=== PATIENT | male | born 1965 | race American Indian/Alaskan Native ===

== ENCOUNTER 2017-02-05 02:47 | Emergency (ER) | payer MEDICAID ==
[~2017-02-05] VITALS: Ht 165.1 cm; Wt 60.0 kg
[~2017-02-05 02:47] MED LIST: NAPR250T PO; OXYC-302 PO
[2017-02-05 05:50] VITALS: BP 133/84
== END 2017-02-05 05:52 | disposition home or self-care (01) ==
LOC: ED 03:01
DX: F10.220 Alcohol dependence with intoxication, uncomplicated (principal); E86.0 Dehydration
CPT/HCPCS: 99283

== ENCOUNTER 2017-02-05 18:49 | Emergency (ER) | payer MEDICAID | END 2017-02-05 19:26 | disposition left against medical advice (07) | LOC: ED 19:20 | DX: F10.220 Alcohol dependence with intoxication, uncomplicated (principal) | CPT/HCPCS: 99283 ==

== ENCOUNTER 2017-02-15 12:50 | Emergency (ER) | payer MEDICAID ==
[~2017-02-15] VITALS: Ht 167.6 cm; Wt 59.0 kg
[2017-02-15 14:21] VITALS: BP 123/84
== END 2017-02-15 14:52 | disposition home or self-care (01) ==
LOC: ED 14:46
DX: F10.229 Alcohol dependence with intoxication, unspecified (principal); F17.210 Nicotine dependence, cigarettes, uncomplicated; R51 Headache; K59.00 Constipation, unspecified
CPT/HCPCS: 99283

== ENCOUNTER 2017-06-04 19:06 | Emergency (ER) | payer MEDICAID ==
[~2017-06-04] VITALS: Ht 162.6 cm; Wt 55.7 kg
[2017-06-04] MEDS ORDERED: MAGNESIUM CITRATE 300ML ORAL SOL PO ONE (20:30)
[2017-06-04] MEDS ORDERED: MAGNESIUM CITRATE 300ML ORAL SOL ONE (21:26)
[2017-06-04 21:35] VITALS: BP 128/79
== END 2017-06-04 21:58 | disposition home or self-care (01) ==
LOC: ED 21:52
DX: K59.00 Constipation, unspecified (principal); F17.200 Nicotine dependence, unspecified, uncomplicated
CPT/HCPCS: 74020; 99284

== ENCOUNTER 2017-06-08 12:42 | Emergency (ER) | payer MEDICAID ==
[~2017-06-08] VITALS: Ht 165.1 cm; Wt 57.5 kg
[2017-06-08 13:57] LABS: HEMOGLOBIN 16.3 g/dL (13.7-18.0); WHITE BLOOD COUNT 6.6 x10^3/uL (3.4-10)
[2017-06-08] MEDS ORDERED: ONDANSETRON 2MG/ML, 2ML IVPush ONE (14:00)
[2017-06-08] MEDS ORDERED: SODIUM CHLORIDE 0.9% 1,000ML IVBOLUS ONE (14:00)
[2017-06-08] MEDS ORDERED: SODIUM CHLORIDE FLUSH 10ML SYR IVF ONE (14:00)
[2017-06-08 14:04] LABS: ASPARTATE AMINO TRANSFERASE 312 U/L (15-37); BLOOD UREA NITROGEN 8 mg/dL (7-18)
[2017-06-08] MEDS ORDERED: CYAN50TA PO (14:29)
[2017-06-08] MEDS ORDERED: MULT-297 PO (14:29)
[2017-06-08 18:00] VITALS: BP 121/82
== END 2017-06-08 18:03 | disposition home or self-care (01) ==
LOC: ED 17:57
DX: K64.8 Other hemorrhoids (principal); R11.2 Nausea with vomiting, unspecified
CPT/HCPCS: 36415; 74177; 80053; 83690; 85025; 96360; 96361; 99285; J7030

== ENCOUNTER 2017-08-03 17:31 | Emergency (ER) | payer MEDICAID ==
[~2017-08-03] VITALS: Ht 167.6 cm; Wt 62.0 kg
[~2017-08-03 17:31] MED LIST changes: +CYAN50TA PO; +MULT-297 PO
[2017-08-03 21:08] VITALS: BP 115/79
== END 2017-08-03 21:12 | disposition home or self-care (01) ==
LOC: ED 21:11
DX: F10.121 Alcohol abuse with intoxication delirium (principal); Z88.8 Allergy status to other drugs, medicaments and biological substances; G44.209 Tension-type headache, unspecified, not intractable
CPT/HCPCS: 70450; 99284

== ENCOUNTER 2017-09-26 19:21 | Emergency (ER) | payer MEDICAID ==
[~2017-09-26] VITALS: Ht 170.2 cm; Wt 62.0 kg
[2017-09-26 20:06] LABS: ALBUMIN 4.1 g/dL (3.4-5.0); ANION GAP 10 mmol/L (5-15); CALCIUM 8.2 mg/dL (8.5-10.1); CHLORIDE 108 mmol/L (98-107)
[2017-09-26 20:09] LABS: TROPONIN I < 0.015 ng/mL (0.000-0.045)
[2017-09-26 20:38] LABS: BASOPHILS # (AUTO) 0.03 x10^3/uL (0-0.1); BASOPHILS % (AUTO) 0 % (0-1); EOSINOPHILS # (AUTO) 0.03 x10^3/uL (0-0.4); EOSINOPHILS % (AUTO) 0 % (1-7); LYMPHOCYTES # (AUTO) 1.85 x10^3/uL (1-3.4); LYMPHOCYTES % (AUTO) 21 % (22-44); MD SCAN; MEAN CORPUSCULAR HEMOGLOBIN 33.3 pg (27.5-34.5); MEAN CORPUSCULAR HGB CONC 33.7 g/dL (33.2-36.2); MEAN CORPUSCULAR VOLUME 98.8 fL (81-97); MEAN PLATELET VOLUME 7.2 fL (7.4-10.4); MONOCYTES # (AUTO) 0.55 x10^3/uL (0.2-0.8); MONOCYTES % (AUTO) 6 % (2-9); NEUTROPHILS # (AUTO) 6.22 x10^3/uL (1.8-6.8); NEUTROPHILS % (AUTO) 72 % (42-75); PLATELET COUNT 366 x10^3/uL (130-400); RED BLOOD COUNT 4.87 x10^6/uL (4.38-5.82); RED CELL DISTRIBUTION WIDTH 14.6 % (9.4-14.8)
[2017-09-26 22:34] VITALS: BP 115/74
== END 2017-09-26 22:37 | disposition home or self-care (01) ==
LOC: ED 20:20
DX: R07.89 Other chest pain (principal); F10.120 Alcohol abuse with intoxication, uncomplicated; Z88.8 Allergy status to other drugs, medicaments and biological substances; Z88.6 Allergy status to analgesic agent; Z79.899 Other long term (current) drug therapy
CPT/HCPCS: 36415; 71045; 80048; 80307; 82040; 84484; 85025; 93005; 99285

== ENCOUNTER 2017-11-05 15:32 | Emergency (ER) | payer MEDICAID ==
[~2017-11-05] VITALS: Ht 162.6 cm; Wt 56.1 kg
[2017-11-05 17:15] LABS: BASOPHILS # (AUTO) 0.02 x10^3/uL (0-0.1); BASOPHILS % (AUTO) 1 % (0-1); EOSINOPHILS # (AUTO) 0.01 x10^3/uL (0-0.4); EOSINOPHILS % (AUTO) 0 % (1-7); LYMPHOCYTES # (AUTO) 1.68 x10^3/uL (1-3.4); LYMPHOCYTES % (AUTO) 37 % (22-44); MD NO; MEAN CORPUSCULAR HEMOGLOBIN 33.6 pg (27.5-34.5); MEAN CORPUSCULAR HGB CONC 34.3 g/dL (33.2-36.2); MEAN CORPUSCULAR VOLUME 98.2 fL (81-97); MEAN PLATELET VOLUME 7.5 fL (7.4-10.4); MONOCYTES # (AUTO) 0.52 x10^3/uL (0.2-0.8); MONOCYTES % (AUTO) 11 % (2-9); NEUTROPHILS # (AUTO) 2.33 x10^3/uL (1.8-6.8); NEUTROPHILS % (AUTO) 51 % (42-75); PLATELET COUNT 300 x10^3/uL (130-400); RED BLOOD COUNT 4.83 x10^6/uL (4.38-5.82); RED CELL DISTRIBUTION WIDTH 14.9 % (9.4-14.8)
[2017-11-05 17:27] LABS: ANION GAP 8 mmol/L (5-15); CALCIUM 8.6 mg/dL (8.5-10.1); CHLORIDE 110 mmol/L (98-107); CREATININE 0.66 mg/dL (0.7-1.3)
[2017-11-05 19:06] VITALS: BP 116/86
== END 2017-11-05 19:32 | disposition home or self-care (01) ==
LOC: ED 18:48
DX: G44.52 New daily persistent headache (NDPH) (principal)
CPT/HCPCS: 36415; 70450; 80048; 82040; 85025; 99285

== ENCOUNTER 2017-11-11 18:54 | Emergency (ER) | payer MEDICAID ==
[~2017-11-11] VITALS: Ht 165.1 cm; Wt 56.0 kg
[2017-11-11 18:58] VITALS: BP 134/92
[2017-11-11 19:57] LABS: PROTHROMBIN TIME 10.4 Seconds (9.6-11.5)
[2017-11-11 19:58] LABS: BASOPHILS # (AUTO) 0.03 x10^3/uL (0-0.1); BASOPHILS % (AUTO) 1 % (0-1); EOSINOPHILS # (AUTO) 0.05 x10^3/uL (0-0.4); EOSINOPHILS % (AUTO) 1 % (1-7); LYMPHOCYTES # (AUTO) 1.91 x10^3/uL (1-3.4); LYMPHOCYTES % (AUTO) 34 % (22-44); MD NO; MEAN CORPUSCULAR HEMOGLOBIN 33.4 pg (27.5-34.5); MEAN CORPUSCULAR HGB CONC 33.5 g/dL (33.2-36.2); MEAN CORPUSCULAR VOLUME 99.6 fL (81-97); MEAN PLATELET VOLUME 7.7 fL (7.4-10.4); MONOCYTES # (AUTO) 0.51 x10^3/uL (0.2-0.8); MONOCYTES % (AUTO) 9 % (2-9); NEUTROPHILS # (AUTO) 3.17 x10^3/uL (1.8-6.8); NEUTROPHILS % (AUTO) 56 % (42-75); PLATELET COUNT 270 x10^3/uL (130-400); RED BLOOD COUNT 4.54 x10^6/uL (4.38-5.82); RED CELL DISTRIBUTION WIDTH 14.5 % (9.4-14.8)
[2017-11-11 20:01] LABS: ALANINE AMINOTRANSFERASE 37 U/L (12-78); ANION GAP 10 mmol/L (5-15); CALCIUM 8.3 mg/dL (8.5-10.1); CHLORIDE 107 mmol/L (98-107); CREATININE 0.81 mg/dL (0.7-1.3)
[2017-11-11 20:03] LABS: ALKALINE PHOSPHATASE 86 U/L (45-117); BILIRUBIN,TOTAL 0.2 mg/dL (0.2-1.0); TOTAL PROTEIN 7.7 g/dL (6.4-8.2)
== END 2017-11-11 20:55 | disposition home or self-care (01) ==
LOC: ED 20:49
DX: K92.2 Gastrointestinal hemorrhage, unspecified (principal); F10.20 Alcohol dependence, uncomplicated; F17.200 Nicotine dependence, unspecified, uncomplicated; Z88.8 Allergy status to other drugs, medicaments and biological substances
CPT/HCPCS: 36415; 74021; 80053; 85025; 85610; 85730; 99285

== ENCOUNTER 2017-11-16 21:41 | Emergency (ER) | payer MEDICAID ==
[~2017-11-16] VITALS: Ht 167.6 cm; Wt 55.6 kg
[2017-11-16 21:42] VITALS: BP 148/99
[2017-11-16] MEDS ORDERED: PROCHLORPERAZINE 5 MG/ML, 2ML IVPush ONE (22:30)
[2017-11-16] MEDS ORDERED: KETOROLAC 30 MG/1 ML IVPush ONE (22:30)
[2017-11-16] MEDS ORDERED: PROCHLORPERAZINE 5 MG/ML, 2ML ONE (22:40)
[2017-11-16] MEDS ORDERED: KETOROLAC 30 MG/1 ML ONE (22:41)
[2017-11-16 22:57] LABS: ALANINE AMINOTRANSFERASE 67 U/L (12-78); ANION GAP 9 mmol/L (5-15); CALCIUM 8.6 mg/dL (8.5-10.1); CHLORIDE 107 mmol/L (98-107); CREATININE 0.72 mg/dL (0.7-1.3)
[2017-11-16 23:01] LABS: ALKALINE PHOSPHATASE 77 U/L (45-117); BILIRUBIN,TOTAL 0.4 mg/dL (0.2-1.0); TOTAL PROTEIN 7.7 g/dL (6.4-8.2)
== END 2017-11-16 23:23 | disposition other institution (70) ==
LOC: ED 23:01
DX: G44.219 Episodic tension-type headache, not intractable (principal); F10.220 Alcohol dependence with intoxication, uncomplicated; F17.200 Nicotine dependence, unspecified, uncomplicated; Z79.899 Other long term (current) drug therapy
CPT/HCPCS: 36415; 80053; 80307; 85025; 96374; 96375; 99284; J0780; J1885

== ENCOUNTER → 2017-11-17 | Outpatient (CLI) | payer MEDICAID ==
[2017-11-16 23:22] LABS: BASOPHILS # (AUTO) 0.03 x10^3/uL (0-0.1); BASOPHILS % (AUTO) 1 % (0-1); EOSINOPHILS # (AUTO) 0.03 x10^3/uL (0-0.4); EOSINOPHILS % (AUTO) 1 % (1-7); LYMPHOCYTES # (AUTO) 1.95 x10^3/uL (1-3.4); LYMPHOCYTES % (AUTO) 45 % (22-44); MD NO; MEAN CORPUSCULAR HEMOGLOBIN 33.3 pg (27.5-34.5); MEAN CORPUSCULAR VOLUME 97.9 fL (81-97); MEAN PLATELET VOLUME 7.8 fL (7.4-10.4); MONOCYTES # (AUTO) 0.52 x10^3/uL (0.2-0.8); MONOCYTES % (AUTO) 12 % (2-9); NEUTROPHILS # (AUTO) 1.79 x10^3/uL (1.8-6.8); NEUTROPHILS % (AUTO) 41 % (42-75); PLATELET COUNT 222 x10^3/uL (130-400); RED BLOOD COUNT 4.75 x10^6/uL (4.38-5.82)
[~2017-11-17] MED LIST changes: +OMNIPAQUE 350 MG/ML, 100ML BOTTLE ONE
== END ==
LOC: RAD 12:15
PROVIDERS: ATTEND Surgery
DX: K76.0 Fatty (change of) liver, not elsewhere classified (principal); K42.9 Umbilical hernia without obstruction or gangrene; N32.89 Other specified disorders of bladder
CPT/HCPCS: 74177; Q9967; 36415; 85025

== ENCOUNTER 2017-12-29 17:27 | Emergency (ER) | payer MEDICAID ==
[~2017-12-29] VITALS: Ht 162.6 cm; Wt 54.6 kg
[~2017-12-29 17:27] MED LIST changes: -OMNIPAQUE 350 MG/ML, 100ML BOTTLE ONE
[2017-12-29 18:19] LABS: BASOPHILS # (AUTO) 0.03 x10^3/uL (0-0.1); BASOPHILS % (AUTO) 0 % (0-1); EOSINOPHILS # (AUTO) 0.17 x10^3/uL (0-0.4); EOSINOPHILS % (AUTO) 3 % (1-7); LYMPHOCYTES # (AUTO) 1.83 x10^3/uL (1-3.4); LYMPHOCYTES % (AUTO) 29 % (22-44); MD NO; MEAN CORPUSCULAR HEMOGLOBIN 33.5 pg (27.5-34.5); MEAN CORPUSCULAR HGB CONC 33.6 g/dL (33.2-36.2); MEAN CORPUSCULAR VOLUME 99.8 fL (81-97); MEAN PLATELET VOLUME 8.4 fL (7.4-10.4); MONOCYTES % (AUTO) 13 % (2-9); NEUTROPHILS # (AUTO) 3.59 x10^3/uL (1.8-6.8); NEUTROPHILS % (AUTO) 56 % (42-75); PLATELET COUNT 115 x10^3/uL (130-400); RED CELL DISTRIBUTION WIDTH 14.1 % (9.4-14.8)
[2017-12-29 18:31] LABS: ALANINE AMINOTRANSFERASE 112 U/L (12-78); ANION GAP 9 mmol/L (5-15); CALCIUM 8.6 mg/dL (8.5-10.1); CHLORIDE 107 mmol/L (98-107); CREATININE 0.59 mg/dL (0.7-1.3)
[2017-12-29 18:33] LABS: ALKALINE PHOSPHATASE 92 U/L (45-117); BILIRUBIN,TOTAL 0.3 mg/dL (0.2-1.0); TOTAL PROTEIN 7.7 g/dL (6.4-8.2)
[2017-12-29 19:36] LABS: MICROSCOPIC NOT IND
[2017-12-29 19:47] LABS: CULTURE INDICATED? NO
[2017-12-29 20:07] VITALS: BP 132/70
== END 2017-12-29 21:22 | disposition left against medical advice (07) ==
LOC: ED 21:15
DX: K62.5 Hemorrhage of anus and rectum (principal); F10.229 Alcohol dependence with intoxication, unspecified; Z88.6 Allergy status to analgesic agent; Z88.8 Allergy status to other drugs, medicaments and biological substances
CPT/HCPCS: 36415; 74022; 80053; 80307; 81003; 83690; 85025; 99285

== ENCOUNTER 2018-01-16 20:43 | Emergency (ER) | payer MEDICAID ==
[~2018-01-16] VITALS: Ht 162.6 cm; Wt 53.0 kg
[2018-01-17 02:57] VITALS: BP 108/64
== END 2018-01-17 04:01 | disposition home or self-care (01) ==
LOC: ED 21:16
DX: G93.40 Encephalopathy, unspecified (principal); K62.5 Hemorrhage of anus and rectum; F10.20 Alcohol dependence, uncomplicated; F17.200 Nicotine dependence, unspecified, uncomplicated
CPT/HCPCS: 99283

== ENCOUNTER 2018-01-22 21:04 | Emergency (ER) | payer MEDICAID ==
[~2018-01-22] VITALS: Ht 167.6 cm; Wt 72.0 kg
[2018-01-22] MEDS ORDERED: ASPI81TA50 PO (21:14)
[2018-01-23 01:13] VITALS: BP 103/67
== END 2018-01-23 01:45 | disposition home or self-care (01) ==
LOC: ED 23:01
DX: F10.120 Alcohol abuse with intoxication, uncomplicated (principal); Z72.89 Other problems related to lifestyle; F17.200 Nicotine dependence, unspecified, uncomplicated
CPT/HCPCS: 93005; 99283; 99285

== ENCOUNTER 2018-03-21 10:44 | Emergency (ER) | payer MEDICAID ==
[~2018-03-21] VITALS: Ht 162.6 cm; Wt 54.0 kg
[~2018-03-21 10:44] MED LIST changes: +ASPI81TA50 PO
[2018-03-21 11:03] VITALS: BP 128/72
== END 2018-03-21 12:19 | disposition home or self-care (01) ==
LOC: ED 12:00
DX: S50.812A Abrasion of left forearm, initial encounter (principal); L03.112 Cellulitis of left axilla; W01.0XXA Fall on same level from slipping, tripping and stumbling without subsequent striking against object, initial encounter; Y93.89 Activity, other specified; Y99.8 Other external cause status; Y92.828 Other wilderness area as the place of occurrence of the external cause
CPT/HCPCS: 99283

== ENCOUNTER 2019-09-01 12:15 | Emergency (ER) | payer MEDICAID ==
[~2019-09-01] VITALS: Ht 162.6 cm; Wt 51.2 kg
--- NOTE | 2019-09-01 12:23 | NUR ---
THIS IS A 54 YO MALE WHO PRESENTS TO THE ER VIA AMBULACNE. AFTER BEING FOUND BY [facility] STAFF AT THE THE [facility] 6 INTOXICATED AND UNABLE TO AMBULATE W/O ASSISTANCE. PT HAS STRONG ETOH ODOR AND VERY SLURRED SPEECH. ADMITS TO DRINKING SEVERAL HURRICANES. 5 CANS FOUND EMPTY IN ROOM BY EMS. FS 98.
[2019-09-01] MEDS ORDERED: THIAMINE 100MG TABLET PO ONE (12:30)
[2019-09-01] MEDS ORDERED: THIAMINE 100MG TABLET ONE (12:31)
[2019-09-01 12:48] VITALS: BP 117/79
--- NOTE | 2019-09-01 15:43 | NUR ---
AMBULATED PATIENT APPROX 40 YARDS. PATIENT WAS STEADY ON HIS FEET. NOTIFIED. DR. UREÑA.
--- NOTE | 2019-09-01 15:53 | NUR ---
Patient given discharge instructions and they have confirmed that they understand the instructions. Patient ambulatory with steady gait.
== END 2019-09-01 15:54 | disposition home or self-care (01) ==
LOC: ED 15:45
DX: F10.220 Alcohol dependence with intoxication, uncomplicated (principal); Y90.0 Blood alcohol level of less than 20 mg/100 ml
CPT/HCPCS: 82962; 99283